=== PATIENT | female | born 1975 | race Caucasian/White ===

== ENCOUNTER → 2017-01-23 | Outpatient (CLI) | payer BC ==
--- NOTE | 2017-01-26 09:03 | MM ---
Reason for exam: follow-up at short interval from prior study. Last mammogram was performed 7 months ago. History: Family history of breast cancer in maternal aunt at age 50. Took hormonal contraceptives for 3 months beginning at age 21. Physical Findings: Nurse did not find any significant physical abnormalities on exam. MG Diagnostic Mammo RT w CAD CC and MLO view(s) were taken of the right breast. Prior study comparison: June 27, 2016, right breast MG work up mamm w CAD RT. June 23, 2016, bilateral MG screening mammo w CAD. The breast tissue is heterogeneously dense. This may lower the sensitivity of mammography. Finding: There are two 6mm and 9mm circumscribed oval masses in the upper outer quadrant of the right breast. Distortion in the right upper outer quadrant more prominent. New finding since June 27, 2016 and June 23, 2016. These results were verbally communicated with the patient and result sheet given to the patient on 01/23/17. ASSESSMENT: Incomplete: need additional imaging evaluation, BI-RAD 0 RECOMMENDATION: Ultrasound of the right breast.
--- NOTE | 2017-01-26 09:07 | USB ---
Reason for exam: additional evaluation requested from abnormal screening. History: Family history of breast cancer in maternal aunt at age 50. Took hormonal contraceptives for 3 months beginning at age 21. US Breast Limited RT Right breast ultrasound demonstrates scattered cysts with the largest measuring 8mm at 9 o'clock, simple appearing and a 19 x 12 x 14mm irregular, solid, hypoechoic lesion with shadow at 10 o'clock, suspicious. These results were verbally communicated with the patient and result sheet given to the patient on 01/23/17. ASSESSMENT: Suspicious, BI-RAD 4 RECOMMENDATION: Ultrasound core biopsy of the right breast. (if not visualized need stereotactic core biopsy) Called Dr. Araujo with mammographic findings and has scheduled an appointment for the patient for 02/05/17 at 1:[address] De Paz. PRELIMINARY REPORT CALLED AND FAXED TO DR. DE PAZ ON 01/26/17 AT 300/TP.
== END | disposition home or self-care (01) ==
LOC: RADMAMWWP 12:43
PROVIDERS: ATTEND Family Medicine
DX: R92.2 Inconclusive mammogram (principal); R92.8 Other abnormal and inconclusive findings on diagnostic imaging of breast; N60.01 Solitary cyst of right breast; Z80.3 Family history of malignant neoplasm of breast
CPT/HCPCS: 76642; G0206

== ENCOUNTER → 2017-02-24 | Day surgery (SDC) | payer BC ==
[~2017-02-24] MED LIST: ALPRAZolam 0.25 MG TAB ONE; BACITRACIN OINT 1 EACH PACKET TOPICAL ONE; LIDOCAINE 1%-EPI 1:100,000 20 ML VIAL ONE
--- NOTE | 2017-02-24 15:38 | USB ---
EXAMINATION TYPE: US biopsy breast VAD RT DATE OF EXAM: 02/24/2017 CLINICAL HISTORY: Abnormal Mammogram R92.8. TECHNIQUE: Ultrasound guided core biopsy of right breast. COMPARISON: 01/23/2017 mammogram, 01/15/2017 ultrasound FINDINGS: The procedure of ultrasound guided core biopsy was explained to the patient. Benefits, alternatives, and risks were discussed. An informed consent was then obtained. The patient was placed in supine positioning for imaging and for the procedure. The overlying skin was prepped and draped in usual sterile fashion. Lidocaine buffered with bicarbonate was used as anesthetic into the skin and subcutaneous tissue up to area of concern in the right breast. A vickie was made with surgical scalpel. Under ultrasound guidance, a 12-gauge vacuum assisted biopsy gun device was used to obtain 6 core samples. Following this, a biopsy clip was left in lesion. The patient tolerated the procedure well without any immediate complication. The patient was kept in the radiology department for short stay after the procedure and then discharged home in stable condition. Procedure mammogram was obtained. The clip is in the expected region of the distortion IMPRESSION: 1. Successful ultrasound-guided core biopsy right breast. Recommendations: 1. Recommendations are pending pathology results. Pathology Results: High Risk BREAST, RIGHT, CORE BIOPSY: FIBROCYSTIC CHANGES INCLUDING CYSTS, FIBROSIS, APOCRINE METAPLASIA, USUAL TYPE DUCT HYPERPLASIA, SCLEROSING ADENOSIS AND MICROCALCIFICATIONS. FEATURES SUGGESTIVE OF A SCLEROTIC PAPILLOMA VERSUS SCLEROSING LESION, SEE NOTE. Recommendation Surgical consult of the right breast. FRANCISCO
--- NOTE | 2017-02-24 17:24 | MM ---
EXAMINATION TYPE: MG diagnostic mammo RT wo CAD DATE OF EXAM: 02/24/2017 COMPARISON: 01/23/2017 CLINICAL HISTORY: Previous abnormal mammogram TECHNIQUE: 2 views right breast. FINDINGS: 2 views of the right breast were obtained in craniocaudal and mediolateral views. Surgical clip is within the distortion in the upper outer aspect right breast. A ribbon clip is present. IMPRESSION: 1. Successful ultrasound-guided core biopsy right breast with clip placement. Recommendations: 1. Recommendations are pending pathology
== END ==
LOC: RADUSWWP 11:11
PROVIDERS: ATTEND Surgery
DX: N60.31 Fibrosclerosis of right breast (principal); N60.81 Other benign mammary dysplasias of right breast; N60.91 Unspecified benign mammary dysplasia of right breast; N60.21 Fibroadenosis of right breast; N64.89 Other specified disorders of breast; Z88.8 Allergy status to other drugs, medicaments and biological substances; R92.8 Other abnormal and inconclusive findings on diagnostic imaging of breast
CPT/HCPCS: 88305; 19083; G0206; A4648

== ENCOUNTER 2017-03-10 09:28 | Day surgery (SDC) | payer BC ==
[2017-03-06 09:02] VITALS: BMI 27.8
[~2017-03-10 09:28] MED LIST changes: -ALPRAZolam 0.25 MG TAB ONE; -BACITRACIN OINT 1 EACH PACKET TOPICAL ONE; +DEXAMETHASONE SOD PHOSPHATE 10 MG/ML 1 ML VIAL IV ONE; +FAMOTIDINE 20 MG/2 ML VIAL IV PRN; +HEPARIN SODIUM,PORCINE 5,000 UNIT/ML 1 ML VIAL SQ ONE; +HYDROmorphone 1 MG/ML 1 ML SYRINGE IVP PRN; +LACTATED RINGERS 1,000 ML IV SCH; +LIDOCAINE 1% 20 ML VIAL (10MG/ML) FOR IV START INTRADERMA PRN; -LIDOCAINE 1%-EPI 1:100,000 20 ML VIAL ONE; +MIDAZOLAM 2 MG/2 ML VIAL IV PRN; +Pre Op ABX Message 1 EACH MISC MISCELLANE ONE; +SCOPOLAMINE 1.5MG/72HR PATCH TRANSDERM ONE
[2017-03-10 10:00] VITALS: RESP 16
[2017-03-10] MEDS ORDERED: ALPRAZolam 0.25 MG TAB PO ONE (10:07)
[2017-03-10] MEDS ORDERED: LIDOCAINE (PF) 10 MG/ML 5ML AMP SQ ONE (11:22)
[2017-03-10] MEDS ORDERED: HEPARIN SODIUM,PORCINE 5,000 UNIT/ML 1 ML VIAL SQ ONE (13:19)
[2017-03-10] MEDS ORDERED: PROPOFOL 10 MG/ML 20 ML VIAL IV ONE (14:06)
[2017-03-10] MEDS ORDERED: MIDAZOLAM 2 MG/2 ML VIAL ONE (14:06)
[2017-03-10] MEDS ORDERED: fentaNYL (PF) 50 MCG/ML 2 ML AMP ONE (14:06)
[2017-03-10] MEDS ORDERED: ROCURONIUM BROMIDE 10 MG/ML 10 ML VIAL IV ONE (14:06)
[2017-03-10] MEDS ORDERED: SUCCINYLCHOLINE CHLORIDE 100 MG/5 ML SYR IV ONE (14:06)
[2017-03-10] MEDS ORDERED: LIDOCAINE 1% INJ 10MG/ML (20 ML MDV) ONE (14:06)
[2017-03-10] MEDS ORDERED: LIDOCAINE 1% INJ 10MG/ML (20 ML MDV) SQ ONE ×2 (14:48)
--- NOTE | 2017-03-10 14:52 | P.OP ---
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 Circumareolar incision was made and carried down to the skin and subcutaneous tissue to the breast tissue. Using the lighted retractor we were able to dissect laterally and identify the localizing needle. The tissue surrounding this was dissected using the electrocautery device and the specimen was removed. After assured that hemostasis was attained using the electrocautery device the wound was well irrigated. The deep tissues were closed with 3-0 Vicryl followed by closure of the skin with 4-0 Monocryl. Prior to closure radiographic confirmation that the area of concern had been sampled was obtained. Specimen was then sent to pathology. Prior to sending the specimen to radiology the specimen was painted for orientation. Patient tolerated procedure in stable condition. All instrument and sponge counts were correct at the end of the case.
--- NOTE | 2017-03-10 14:53 | P.DS ---
Providers Attending physician: Suze De Paz Primary care physician: Stated None Plan - Discharge Summary New Discharge Prescriptions: New HYDROcodone/APAP 5-325MG [[place] 5] 1 - 2 each PO Q4H PRN #20 tab PRN Reason: Pain No Action Zolpidem [Ambien] 10 mg PO HS PRN PRN Reason: SLEEP Ondansetron HCl [Zofran] 4 mg PO DAILY PRN PRN Reason: Nausea DULoxetine HCL [Cymbalta] 60 mg PO HS Discharge Medication List DULoxetine HCL [Cymbalta] 60 mg PO HS 03/06/17 [History] Ondansetron HCl [Zofran] 4 mg PO DAILY PRN 03/06/17 [History] Zolpidem [Ambien] 10 mg PO HS PRN 03/06/17 [History] HYDROcodone/APAP 5-325MG [[place] 5] 1 - 2 each PO Q4H PRN #20 tab 03/10/17 [Rx] Follow up Appointment(s)/Referral(s): Suze De Paz MD [STAFF PHYSICIAN] - 1 Week Activity/Diet/Wound Care/Special Instructions: do not drive today Discharge Disposition: HOME SELF-CARE
[2017-03-10 15:20] VITALS: TEMP 98
[2017-03-10] MEDS ORDERED: HYDROcodone/APAP 5-325MG 1 EACH TAB PO ONE (16:15)
[2017-03-10 16:51] VITALS: BP 128/81; PULSE 54
--- NOTE | 2017-03-10 17:21 | MM ---
EXAMINATION TYPE: MG pre op needle loc RT DATE OF EXAM: 03/10/2017 COMPARISON: NONE CLINICAL HISTORY: Abnormal mammogram TECHNIQUE: Needle localization with wire placement and surgical excision of area of concern in the right breast. FINDINGS: The procedure of needle localization with wire placement and than surgical excision was explained to the patient. Benefits, alternatives, and risks were discussed. An informed consent was then obtained. The shortest pathway for procedure was chosen. Shortest pathway was lateral approach. The overlying skin was prepped and draped in usual sterile fashion. Lidocaine buffered with bicarbonate was used as anesthetic into the skin and subcutaneous tissue up to the level of area of concern. A 5 cm needle was used. It was placed via a lateral approach under mammographic guidance. Subsequent 90 degrees mammogram show the needle to be in satisfactory position relative to the targeted area. At this point, wire was placed and the needle was withdrawn. The wire was fixed to patient's skin. Images were marked for surgeon. The patient tolerated the procedure well without any immediate complication. The patient was kept in the radiology department for short stay after the procedure and then taken to surgery for surgical excision. Targeted surgical clip and wire are identified in specimen mammogram. The patient was kept in hospital for short stay after the procedure and then discharged home in stable condition. IMPRESSION: Successful, uncomplicated needle localization with wire placement and surgical excision of region of the surgical clip in the right breast, full pathology results to follow. Pathology Results: High Risk BREAST, RIGHT, NEEDLE LOCALIZATION EXCISION: PROLIFERATIVE FIBROCYSTIC CHANGES INCLUDING COMPLEX SCLEROSING LESION WITH FIBROSIS, CALCIFICATIONS, MODERATE TO FLORID USUAL TYPE DUCTAL HYPERPLASIA, CYSTS, SCLEROSING ADENOSIS AND APOCRINE METAPLASIA. CANNOT EXCLUDE FOCAL ATYPICAL LOBULAR HYPERPLASIA (ALH), SEE NOTE. PREVIOUS BIOPSY SITE. Recommendation Follow up mammogram of the right breast in 6 months. FRANCISCO
--- NOTE | 2017-03-10 17:25 | MM ---
EXAMINATION TYPE: MG surgical specimen RT DATE OF EXAM: 03/10/2017 CLINICAL HISTORY: Abnormal mammogram, abnormal pathology FINDINGS: Surgical wire is within the specimen. The surgical clip is within the specimen. IMPRESSION: Successful excision previous location surgical clip.
== END 2017-03-10 17:08 | disposition home or self-care (01) ==
LOC: OR 09:28
PROVIDERS: ATTEND Surgery
DX: N60.11 Diffuse cystic mastopathy of right breast (principal); N60.21 Fibroadenosis of right breast; R92.1 Mammographic calcification found on diagnostic imaging of breast; F17.200 Nicotine dependence, unspecified, uncomplicated; Z79.899 Other long term (current) drug therapy
CPT/HCPCS: 81025; 88342; 88307; 88341; 76098; 19281; J2250; J1644; J1100; J2001 ×2; J3010; J0330; J2704

== ENCOUNTER → 2017-10-12 | Outpatient (CLI) | payer BC ==
--- NOTE | 2017-10-12 15:00 | MM ---
Reason for exam: follow-up at short interval from prior study. Last mammogram was performed 8 months ago. History: Patient has history of high-risk lesion on a previous biopsy at age 41. Family history of breast cancer in maternal aunt at age 50. High risk MG pre op needle loc RT of the right breast, March 10, 2017. High risk US biopsy breast VAD RT of the right breast, February 24, 2017. Took hormonal contraceptives for 3 months beginning at age 21. Physical Findings: Nurse did not find any significant physical abnormalities on exam. MG Diagnostic Mammo RT w CAD CC, MLO, and LM view(s) were taken of the right breast. Prior study comparison: February 24, 2017, right breast MG diagnostic mammo RT wo CAD. January 23, 2017, right breast MG diagnostic mammo RT w CAD. The breast tissue is heterogeneously dense. This may lower the sensitivity of mammography. Chronic nodularity 9 o'clock likely cysts seen on ultrasound. Post excisional scar upper outer quadrant right breast. A 9mm nodule is circumscribed at 10 o'clock and is gradually enlarging. These results were verbally communicated with the patient and result sheet given to the patient on 10/12/17. ASSESSMENT: Incomplete: need additional imaging evaluation, BI-RAD 0 RECOMMENDATION: Ultrasound of the right breast. (10 o'clock, 4-5cm from nipple)
--- NOTE | 2017-10-12 15:04 | USB ---
Reason for exam: additional evaluation requested from abnormal screening. History: Patient has history of high-risk lesion on a previous biopsy at age 41. Family history of breast cancer in maternal aunt at age 50. High risk MG pre op needle loc RT of the right breast, March 10, 2017. High risk US biopsy breast VAD RT of the right breast, February 24, 2017. Took hormonal contraceptives for 3 months beginning at age 21. US Breast Limited RT Right breast ultrasound demonstrates a 0.8 x 0.7 x 0.5cm oval, lobular, cystic lesion at 9 o'clock, a 0.6 x 0.6 x 0.5cm oval, mixed lesion at 9 o'clock likely cyst cluster, a 0.4 x 0.7 x 0.5cm oval, cystic cluster at 10 o'clock, duct ectasia at 10 o'clock, a 0.3 x 0.6 x 0.3cm cystic lesion at 10 o'clock, a 0.8 x 0.9 x 0.5cm intramammary lymph node corresponding to the mammographic finding at 10 o'clock. Given gradual enlargement, 6 month follow up mammogram recommended. These results were verbally communicated with the patient and result sheet given to the patient on 10/12/17. ASSESSMENT: Probably benign, BI-RAD 3 RECOMMENDATION: Follow-up diagnostic mammogram of the right breast in 6 months.
== END | disposition home or self-care (01) ==
LOC: RADMAMWWP 12:58
PROVIDERS: ATTEND Family Medicine
DX: N63.0 Unspecified lump in unspecified breast (principal); R92.8 Other abnormal and inconclusive findings on diagnostic imaging of breast
CPT/HCPCS: 77065

== ENCOUNTER → 2018-04-29 | Outpatient (CLI) | payer BC ==
--- NOTE | 2018-04-30 10:42 | MM ---
Reason for exam: follow-up at short interval from prior study. Last mammogram was performed 7 months ago. History: Patient has history of high-risk lesion on a previous biopsy at age 41. Family history of breast cancer in maternal aunt at age 50. High risk MG pre op needle loc RT of the right breast, March 10, 2017. High risk US biopsy breast VAD RT of the right breast, February 24, 2017. Took hormonal contraceptives for 3 months beginning at age 21. Physical Findings: Nurse did not find any significant physical abnormalities on exam. MG Diagnostic Mammo w CAD [facility] Bilateral CC and MLO view(s) were taken. Prior study comparison: October 12, 2017, right breast MG diagnostic mammo RT w CAD. February 24, 2017, right breast MG diagnostic mammo RT wo CAD. The breast tissue is heterogeneously dense. This may lower the sensitivity of mammography. No significant new findings when compared with previous films. These results were verbally communicated with the patient and result sheet given to the patient on 04/29/18. ASSESSMENT: Benign, BI-RAD 2 RECOMMENDATION: Routine screening mammogram of both breasts in 1 year.
== END | disposition home or self-care (01) ==
LOC: RADMAMWWP 15:27
PROVIDERS: ATTEND Family Medicine
DX: N63.10 Unspecified lump in the right breast, unspecified quadrant (principal)
CPT/HCPCS: 77066

== ENCOUNTER → 2020-05-04 | Outpatient (CLI) | payer BC ==
--- NOTE | 2020-05-08 12:05 | MM ---
Reason for exam: additional evaluation requested from abnormal screening. Last mammogram was performed less than 1 month ago. History: Patient has history of high-risk lesion on a previous biopsy at age 41. Family history of breast cancer in maternal aunt at age 50. High risk MG pre op needle loc RT of the right breast, March 10, 2017. High risk US biopsy breast VAD RT of the right breast, February 24, 2017. Took hormonal contraceptives for 3 months beginning at age 21. Physical Findings: Nurse did not find any significant physical abnormalities on exam. MG Work Up Mamm w CAD LT CC, MLO, and ML view(s) were taken of the left breast. Prior study comparison: April 25, 2020, bilateral MG screening mammo w CAD. April 29, 2018, bilateral MG diagnostic mammo w CAD [facility]. The breast tissue is heterogeneously dense. This may lower the sensitivity of mammography. Finding: There is a 15 mm mass in the upper quadrant, central position of the left breast. These results were verbally communicated with the patient and result sheet given to the patient on 05/04/20. ASSESSMENT: Incomplete: need additional imaging evaluation, BI-RAD 0 RECOMMENDATION: Ultrasound of the left breast.
--- NOTE | 2020-05-08 12:07 | USB ---
Reason for exam: additional evaluation requested from abnormal screening. History: Patient has history of high-risk lesion on a previous biopsy at age 41. Family history of breast cancer in maternal aunt at age 50. High risk MG pre op needle loc RT of the right breast, March 10, 2017. High risk US biopsy breast VAD RT of the right breast, February 24, 2017. Took hormonal contraceptives for 3 months beginning at age 21. US Breast Workup Limited LT Left limited breast ultrasound including focal area of concern, retroareolar and axilla demonstrates a 0.6 x 0.5 x 0.4cm oval, irregular, cystic cluster at 12 o'clock, a 0.2 x 0.2 x 0.2cm oval, cystic cluster at 3 o'clock and a 1.0 x 1.1 x 0.8cm oval, cystic lesion at 4 o'clock. These results were verbally communicated with the patient and result sheet given to the patient on 05/04/20. ASSESSMENT: Suspicious, BI-RAD 4 RECOMMENDATION: Stereotactic core biopsy of the left breast. (mammographic findings) Called Dr. Araujo's office with mammographic findings and has scheduled an appointment for the patient for 06/08/20 at 4:[address] De Paz. Biopsy scheduled for 05/24/20 at 8:00. PRELIMINARY REPORT CALLED AND FAXED TO DR. DE PAZ ON 05/08/20.
== END | disposition home or self-care (01) ==
LOC: RADMAMWWP 07:27
PROVIDERS: ATTEND Family Medicine
DX: R92.8 Other abnormal and inconclusive findings on diagnostic imaging of breast (principal)
CPT/HCPCS: 77065

== ENCOUNTER → 2021-08-16 | Outpatient (CLI) | payer BC ==
--- NOTE | 2021-08-16 11:23 | MM ---
Reason for exam: additional evaluation requested from prior study. Last mammogram was performed 1 year and 3 months ago. History: Patient has history of high-risk lesion on a previous biopsy at age 41. Family history of breast cancer in maternal aunt at age 50. MG discontinued stereo core LT of the left breast, May 24, 2020. High risk MG pre op needle loc RT of the right breast, March 10, 2017. High risk US biopsy breast VAD RT of the right breast, February 24, 2017. Took hormonal contraceptives for 3 months beginning at age 21. Physical Findings: Nurse did not find any significant physical abnormalities on exam. MG 3D Diag Mammo W/Cad [facility] Bilateral CC and MLO view(s) were taken. LM view(s) were taken of the right breast. Prior study comparison: May 04, 2020, left breast MG work up mamm w CAD LT. April 25, 2020, bilateral MG screening mammo w CAD. April 29, 2018, bilateral MG diagnostic mammo w CAD [facility]. The breast tissue is heterogeneously dense. This may lower the sensitivity of mammography. Central right CC asymmetric density becomes less defined on spot compression, suspected excisional scar. 8mm nodularity becomes more defined inferior right periareolar. These results were verbally communicated with the patient and result sheet given to the patient on 08/16/21. ASSESSMENT: Incomplete: need additional imaging evaluation, BI-RAD 0 RECOMMENDATION: Ultrasound of both breasts. (left as ordered, right inferior half zone A)
--- NOTE | 2021-08-16 11:27 | USB ---
Reason for exam: additional evaluation requested from abnormal screening. History: Patient has history of high-risk lesion on a previous biopsy at age 41. Family history of breast cancer in maternal aunt at age 50. MG discontinued stereo core LT of the left breast, May 24, 2020. High risk MG pre op needle loc RT of the right breast, March 10, 2017. High risk US biopsy breast VAD RT of the right breast, February 24, 2017. Took hormonal contraceptives for 3 months beginning at age 21. US Breast Limited BILAT Right limited breast ultrasound including focal area of concern, retroareolar and axilla demonstrates a 0.8 x 0.4 x 0.7cm cystic lesion at 9 o'clock. Left limited breast ultrasound including focal area of concern, retroareolar and axilla demonstrates a 0.3 x 0.2 x 0.3cm cystic, benign lesion at 1 o'clock and a 0.5 x 0.4 x 0.6cm hypoechoic lesion at 1 o'clock, 6 month follow up recommended. The previous 12 o'clock lesion is no longer seen. Right scanned 3-9 o'clock. Left scanned 11-1 o'clock. These results were verbally communicated with the patient and result sheet given to the patient on 08/16/21. ASSESSMENT: Probably benign, BI-RAD 3 RECOMMENDATION: Follow-up diagnostic mammogram of the right breast in 6 months. Ultrasound of the left breast in 6 months. (1 o'clock)
== END | disposition home or self-care (01) ==
LOC: RADMAMWWP 07:36
PROVIDERS: ATTEND Family Medicine
DX: R92.8 Other abnormal and inconclusive findings on diagnostic imaging of breast (principal)
CPT/HCPCS: 77062; 77066

== ENCOUNTER → 2022-10-09 | Outpatient (CLI) | payer OTHER, BC ==
--- NOTE | 2022-10-09 15:48 | USB ---
Reason for Exam: Follow-up at short interval from prior study. Patient History: Menarche at age 10. First Full-Term at age 19. Hormonal Contraceptives for 3 months from age 21 until age 21. 03/10/2017, High risk Core Biopsy on the right side. 02/24/2017, High risk Core Biopsy on the right side. 05/24/2020, MG discontinued stereo core LT on the left side. Maternal aunt had breast cancer, age 50. Risk Values: Marita 5 year model risk: 1.4%. NCI Lifetime model risk: 12.2%. Prior Study Comparison: 04/25/2020 Bilateral Screening Mammogram, [facility]. 05/04/2020 Left Diagnostic Mammogram, [facility]. 08/16/2021 Bilateral Diagnostic Mammogram, [facility]. Findings: The upper outer quadrant of the left breast, the axilla of the left breast and the retroareolar of the left breast were scanned. Targeted ultrasound upper outer quadrant left breast periareolar region as follow-up for the previously seen abnormality on 08/16/2021. At the 2:00 position, periareolar region, there is a heterogeneous hypoechoic structure measuring 7 x 7 x 5 mm versus 3 mm, previously. Adjacent tiny 3 mm cyst remains unchanged. Given the slight increase in size over the course of a year, ongoing follow-up recommended. Overall Assessment: Probably benign, BI-RAD 3 Management: Diagnostic Breast Ultrasound of the left breast in 6 months. For the 2:00 lesion, slightly increased in size now at 7 mm versus 3 mm, previously over the course of a year. Patient should continue monthly self breast exams. Results were given to the patient verbally at the time of exam. Electronically signed and approved by: Heather Stallworth M.D. Radiologist
--- NOTE | 2022-10-09 19:09 | MM ---
Reason for Exam: Additional evaluation requested from prior study. Last mammogram was performed 1 year(s) and 2 month(s) ago. Patient History: Menarche at age 10. First Full-Term at age 19. Hormonal Contraceptives for 3 months from age 21 until age 21. 03/10/2017, High risk Core Biopsy on the right side. 02/24/2017, High risk Core Biopsy on the right side. 05/24/2020, MG discontinued stereo core LT on the left side. Maternal aunt had breast cancer, age 50. Last menstrual period: 10/05/2022 Risk Values: Marita 5 year model risk: 1.4%. NCI Lifetime model risk: 12.2%. Prior Study Comparison: 04/29/2018 Bilateral Diagnostic Mammogram, [facility]. 04/25/2020 Bilateral Screening Mammogram, [facility]. 08/16/2021 Bilateral Diagnostic Mammogram, [facility]. Tissue Density: The breast tissue is heterogeneously dense. This may lower the sensitivity of mammography. Findings: Analyzed By CAD. Postexcisional changes redemonstrated on the right. An area of asymmetric density just lateral to the retroareolar plane at an anterior to middle depth on the right cc view does not persist on spot 3-D views. Ultrasound follow-up for the previously seen abnormally recommended. Otherwise, no significant change. Overall Assessment: Incomplete: need additional imaging evaluation, BI-RAD 0 Management: Diagnostic Breast Ultrasound of the left breast. Electronically signed and approved by: Heather Stallworth M.D. Radiologist
== END | disposition home or self-care (01) ==
LOC: RADMAMWWP 14:25
PROVIDERS: ATTEND Family Medicine
DX: N60.11 Diffuse cystic mastopathy of right breast (principal); N60.12 Diffuse cystic mastopathy of left breast; Z80.3 Family history of malignant neoplasm of breast; Z98.890 Other specified postprocedural states
CPT/HCPCS: 77062; 77066

== ENCOUNTER → 2023-07-22 | Outpatient (CLI) | payer OTHER, BC ==
--- NOTE | 2023-07-22 14:52 | USB ---
Patient History: Menarche at age 10. First Full-Term at age 19. Hormonal Contraceptives for 3 months from age 21 until age 21. 03/10/2017, High risk Core Biopsy on the right side. 02/24/2017, High risk Core Biopsy on the right side. 05/24/2020, MG discontinued stereo core LT on the left side. Maternal aunt had breast cancer, age 50. Risk Values: Marita 5 year model risk: 1.4%. NCI Lifetime model risk: 12.2%. Prior Study Comparison: 05/04/2020 Left Diagnostic Mammogram, [facility]. 08/16/2021 Bilateral Diagnostic Mammogram, [facility]. 10/09/2022 Bilateral MG 3D diag mammo w/cad [facility], [facility]. Findings: A complete US of all four quadrants of the breast and retro-areolar region were reviewed. No solid or cystic masses are identified..A complete US of all four quadrants of the breast and retro-areolar region were reviewed. Heterogenous hypoechoic circumscribed area is redemonstrated. This measures 0.8 x 0.7 x 0.9 cm. Lymph nodes noted within the axilla. Overall Assessment: Benign, BI-RAD 2 Management: Screening Mammogram of both breasts in 6 months. A clinical breast exam by your physician is recommended on an annual basis and results should be correlated with mammographic findings. This exam should not preclude additional follow-up of suspicious palpable abnormalities. Results were given to the patient verbally at the time of exam. Electronically signed and approved by: Ari Walsh D.O. Radiologis
== END | disposition home or self-care (01) ==
LOC: RADUSWWP 13:57
PROVIDERS: ATTEND Family Medicine
DX: N60.02 Solitary cyst of left breast (principal); Z80.3 Family history of malignant neoplasm of breast

== ENCOUNTER → 2024-01-01 | Outpatient (CLI) | payer OTHER, BC ==
--- NOTE | 2024-01-04 12:27 | MM ---
Reason for Exam: Screening (asymptomatic). Last mammogram was performed 1 year(s) and 3 month(s) ago. Patient History: Menarche at age 10. First Full-Term at age 19. Hormonal Contraceptives for 3 months from age 21 until age 21. 03/10/2017, High risk Core Biopsy on the right side. 02/24/2017, High risk Core Biopsy on the right side. 05/24/2020, MG discontinued stereo core LT on the left side. Maternal aunt had breast cancer, age 50. Risk Values: Marita 5 year model risk: 1.3%. NCI Lifetime model risk: 11.8%. Prior Study Comparison: 05/04/2020 Left Diagnostic Mammogram, [facility]. 08/16/2021 Bilateral Diagnostic Mammogram, [facility]. 10/09/2022 Bilateral MG 3D diag mammo w/cad [facility], [facility]. Tissue Density: The breasts are heterogeneously dense, which may obscure small masses. Findings: Analyzed By CAD. There is no suspicious group of microcalcifications or new suspicious mass in either breast. Overall Assessment: Benign, BI-RAD 2 Management: Screening Mammogram of both breasts in 1 year. . Patient should continue monthly self-breast exams. A clinical breast exam by your physician is recommended on an annual basis. This exam should not preclude additional follow-up of suspicious palpable abnormalities. Note on Marita scores and lifetime risk: 1. A Marita score greater than 3% is considered moderate risk. If this is the case, consider specialist referral to assess eligibility for a risk reducing agent. 2. If overall lifetime risk for the development of breast cancer is 20% or higher, the patient may qualify for future screening with alternating mammogram and breast MRI. Electronically signed and approved by: Mike Jeffers M.D. Radiologis
== END | disposition home or self-care (01) ==
LOC: RADMAMWWP 09:35
PROVIDERS: ATTEND Family Medicine
DX: Z12.31 Encounter for screening mammogram for malignant neoplasm of breast (principal); Z80.3 Family history of malignant neoplasm of breast
CPT/HCPCS: 77063; 77067